=== PATIENT | female | born 1995 | race Caucasian/White ===

== ENCOUNTER 2017-01-13 18:07 | Emergency (ER) | payer OTHER ==
--- NOTE | 2017-01-13 18:42 | ER Document Report ---
ED Medical Screen (RME) - General Chief Complaint: Racing heart, VANEGAS, nausea Stated Complaint: FAST HEART BEAT,NAUSEA,DIZZY Time Seen by Provider: 01/13/17 18:41 Notes: Patient states she has been feeling weak for several days. She has been lightheaded and dizzy. No problems with urination. No bleeding. She states she took a test and it was +3 days ago but then she had some vaginal spotting and a test today was negative. She is also been under some stress because her left today to help in [place]. TRAVEL OUTSIDE OF THE [place] IN LAST 30 DAYS: No Past Medical History Renal/ Medical History: Denies: Hx Peritoneal Dialysis
[2017-01-13 19:24] LABS: ABSOLUTE EOSINOPHILS # (AUTO) 0.1 10^3/uL (0.0-0.6); ABSOLUTE LYMPHOCYTES (AUTO) 1.9 10^3/uL (0.5-4.7); ABSOLUTE MONOCYTES (AUTO) 0.3 10^3/uL (0.1-1.4); ABSOLUTE NEUT (AUTO) 2.1 10^3/uL (1.7-8.2); EOSINOPHILS % (AUTO) 1.7 % (0-6); HEMATOCRIT 41.6 % (36.0-47.0); HEMOGLOBIN 14.1 g/dL (12.0-15.5); HGB HCT DIFFERENCE 0.7; LYMPHOCYTES % (AUTO) 42.5 % (13-45); MEAN CORPUSCULAR HEMOGLOBIN 27.3 pg (27.0-33.4); MEAN CORPUSCULAR HGB CONC 33.9 g/dL (32.0-36.0); MEAN CORPUSCULAR VOLUME 81 fl (80-97); MONOCYTES % (AUTO) 7.4 % (3-13); RED BLOOD COUNT 5.17 10^6/uL (3.72-5.28); RED CELL DISTRIBUTION WIDTH 14.4 % (11.5-14.0); SEGMENTED NEUTROPHILS % (AUTO) 47.4 % (42-78); WHITE BLOOD COUNT 4.5 10^3/uL (4.0-10.5)
[2017-01-13 19:25] LABS: APPEARANCE,URINE CLEAR; BILIRUBIN,URINE NEGATIVE (NEGATIVE); GLUCOSE, URINE NEGATIVE (NEGATIVE); KETONES,URINE NEGATIVE (NEGATIVE); LEUKOCYTE ESTERASE,URINE NEGATIVE (NEGATIVE); NITRITE,URINE NEGATIVE (NEGATIVE); PROTEIN,URINE NEGATIVE (NEGATIVE); URINE SPECIFIC GRAVITY 1.002; UROBILINOGEN,URINE NEGATIVE mg/dL (<2.0)
[2017-01-13 19:43] LABS: ALANINE AMINOTRANSFERASE 25 U/L (9-52); ALBUMIN 4.9 g/dL (3.5-5.0); ALKALINE PHOSPHATASE 58 U/L (38-126); ANION GAP 14 (5-19); ASPARTATE AMINO TRANSFERASE 21 U/L (14-36); BILIRUBIN,DIRECT 0.3 mg/dL (0.0-0.4); BILIRUBIN,TOTAL 0.5 mg/dL (0.2-1.3); BLOOD UREA NITROGEN 7 mg/dL (7-20); CALCIUM 10.1 mg/dL (8.4-10.2); CARBON DIOXIDE 25 mmol/L (22-30); CHLORIDE 105 mmol/L (98-107); CREATININE RESULT 0.76 mg/dL (0.52-1.25); GLUCOSE 91 mg/dL (75-110); POTASSIUM 3.7 mmol/L (3.6-5.0); SODIUM 143.5 mmol/L (137-145); TOTAL PROTEIN 7.8 g/dL (6.3-8.2)
[2017-01-13] MEDS ORDERED: DIPHENHYDRAMINE HCL 50 MG/ML VIAL IV ONE (19:53)
[2017-01-13] MEDS ORDERED: PROCHLORPERAZINE EDISYLATE INJ 10 MG/2 ML VIAL IV ONE (19:53)
[2017-01-13] MEDS ORDERED: KETOROLAC TROMETHAMINE INJ/PF 30 MG/1 ML SDV IV ONE (19:53)
--- NOTE | 2017-01-13 19:55 | ER Document Report ---
ED General - General Chief Complaint: Racing heart, VANEGAS, nausea Stated Complaint: FAST HEART BEAT,NAUSEA,DIZZY Time Seen by Provider: 01/13/17 18:41 Mode of Arrival: Ambulatory Information source: Patient, Parent Notes: Patient presents complaining of 3 day history of heart palpitations off and on. Patient states that she has had a headache to the right side of her head for the past 3 days as well. Patient complains of some nausea. Patient denies any vomiting or diarrhea. Patient states that whenever she has these episodes of heart racing that she occasionally will feel dizzy. Patient also states that her spouse left today to go to [place] to help with flood victims. Patient denies any known history of anxiety. Patient states that she does not like to typically complain about her symptoms that she has. Patient denies any recent travel, surgeries, bedrest or immobilization. Patient denies any history of PE or DVT in the past. Patient denies any cough or cold symptoms. TRAVEL OUTSIDE OF THE [place] IN LAST 30 DAYS: No - HPI Onset: Other - 3 days Onset/Duration: Waxing and waning Quality of pain: Achy Pain Level: 4 Associated symptoms: Headache, Nausea, Other - Palpitations. denies: Chest pain , Nonproductive cough, Productive cough, Fever, Vomiting, Shortness of breath Exacerbated by: Denies Relieved by: Denies Similar symptoms previously: No Recently seen / treated by doctor: No - Related Data Allergies/Adverse Reactions: fluconazole Allergy (Verified 01/13/17 18:41) Past Medical History - General Information source: Patient - Social History Smoking Status: Never Smoker Frequency of alcohol use: None Drug Abuse: None Occupation: None Lives with: Family Family History: Reviewed & Not Pertinent Neurological Medical History: Reports: Other - Occasional headaches Renal/ Medical History: Denies: Hx Peritoneal Dialysis Surgical Hx: Negative Review of Systems - Review of Systems Constitutional: No symptoms reported. denies: Fever EENT: No symptoms reported Cardiovascular: Heart racing, Dizziness. denies: Chest pain Respiratory: No symptoms reported. denies: Cough, Short of breath Gastrointestinal: Nausea. denies: Abdominal pain, Vomiting Genitourinary: No symptoms reported Female Genitourinary: No symptoms reported Musculoskeletal: No symptoms reported. denies: Back pain Skin: No symptoms reported. denies: Rash Hematologic/Lymphatic: No symptoms reported Neurological/Psychological: Headaches. denies: Lost consciousness Physical Exam - Vital signs Vitals: Temp Pulse Resp BP Pulse Ox 98.3 F 66 19 117/84 98 01/13/17 22:30 01/13/17 22:30 01/13/17 22:30 01/13/17 22:30 01/13/17 22:30 - General General appearance: Appears well, Alert In distress: None - HEENT Head: Normocephalic, Atraumatic Eyes: Normal Conjunctiva: Normal Pupils: PERRL Tympanic membrane: Normal Sinus: Normal Nasal: Normal Mouth/Lips: Normal Mucous membranes: Normal Neck: Normal, Supple. No: Lymphadenopathy, Meningismus - Respiratory Respiratory status: No respiratory distress Chest status: Nontender Breath sounds: Normal. No: Rales, Rhonchi, Stridor, Wheezing Chest palpation: Normal - Cardiovascular Rhythm: Regular Heart sounds: S1 appreciated, S2 appreciated Murmur: No - Back Back: Normal, Nontender. No: CVA tenderness - Extremities General upper extremity: Normal inspection, Normal ROM General lower extremity: Normal inspection, Normal ROM - Neurological Neuro grossly intact: Yes Cognition: Normal Yulisa Coma Scale Eye Opening: Spontaneous Stanley Coma Scale Verbal: Oriented Stanley Coma Scale Motor: Obeys Commands Yulisa Coma Scale Total: 15 - Psychological Associated symptoms: Normal affect, Normal mood - Skin Skin Temperature: Warm Skin Moisture: Dry Skin Color: Normal Course - Re-evaluation Re-evalutation: 01/13/17 22:09 Patient reports that headache pain has resolved. Patient without any palpitations during her ER stay. Discussed results of her diagnostic tests. Patient encouraged to follow-up with her primary doctor as well as a accountant certified public for recheck. Discussed worsening signs or symptoms that patient should return immediately for. Patient verbalized understanding and agrees with plan of care - Vital Signs Vital signs: Temp Pulse Resp BP Pulse Ox 98.3 F 66 19 117/84 98 01/13/17 22:30 01/13/17 22:30 01/13/17 22:30 01/13/17 22:30 01/13/17 22:30 - Laboratory Result Diagrams: 01/13/17 19:13 01/13/17 19:13 Laboratory results interpreted by me: 01/13/17 19:13 RDW 14.4 H 01/13/17 22:10 Labs- Entire Visit 0801/13/17 01/13/17 19:13 19:13 19:13 WBC 4.5 RBC 5.17 Hgb 14.1 Hct 41.6 MCV 81 MCH 27.3 MCHC 33.9 RDW 14.4 H Plt Count 254 Seg Neutrophils % 47.4 Lymphocytes % 42.5 Monocytes % 7.4 Eosinophils % 1.7 Basophils % 1.0 Absolute Neutrophils 2.1 Absolute Lymphocytes 1.9 Absolute Monocytes 0.3 Absolute Eosinophils 0.1 Absolute Basophils 0.0 Sodium 143.5 Potassium 3.7 Chloride 105 Carbon Dioxide 25 Anion Gap 14 BUN 7 Creatinine 0.76 Est GFR ( Amer) > 60 Est GFR (Non-Af Amer) > 60 Glucose 91 Calcium 10.1 Total Bilirubin 0.5 Direct Bilirubin 0.3 Indirect Bilirubin Not Reportable Neonat Total Bilirubin Not Reportable AST 21 ALT 25 Alkaline Phosphatase 58 Total Protein 7.8 Albumin 4.9 TSH Serum HCG, Qual Urine Color COLORLESS Urine Appearance CLEAR Urine pH 6.0 Ur Specific [place] 1.002 Urine Protein NEGATIVE Urine Glucose (UA) NEGATIVE Urine Ketones NEGATIVE Urine Blood NEGATIVE Urine Nitrite NEGATIVE Urine Bilirubin NEGATIVE Urine Urobilinogen NEGATIVE Ur Leukocyte Esterase NEGATIVE Urine WBC (Auto) 0 Urine Mucus (Auto) RARE Urine Ascorbic Acid NEGATIVE Urine HCG, Qual NEGATIVE 01/13/17 01/13/17 19:13 19:13 WBC RBC Hgb Hct MCV MCH MCHC RDW Plt Count Seg Neutrophils % Lymphocytes % Monocytes % Eosinophils % Basophils % Absolute Neutrophils Absolute Lymphocytes Absolute Monocytes Absolute Eosinophils Absolute Basophils Sodium Potassium Chloride Carbon Dioxide Anion Gap BUN Creatinine Est GFR ( Amer) Est GFR (Non-Af Amer) Glucose Calcium Total Bilirubin Direct Bilirubin Indirect Bilirubin Neonat Total Bilirubin AST ALT Alkaline Phosphatase Total Protein Albumin TSH 1.12 Serum HCG, Qual NEGATIVE Urine Color Urine Appearance Urine pH Ur Specific [place] Urine Protein Urine Glucose (UA) Urine Ketones Urine Blood Urine Nitrite Urine Bilirubin Urine Urobilinogen Ur Leukocyte Esterase Urine WBC (Auto) Urine Mucus (Auto) Urine Ascorbic Acid Urine HCG, Qual Discharge - Discharge Clinical Impression: Palpitations Headache Qualifiers: Headache type: unspecified Headache chronicity pattern: acute headache Intractability: not intractable Qualified Code(s): R51 - Headache Condition: Stable Disposition: HOME, SELF-CARE Instructions: Antinausea Medication ([facility]), Intravenous Compazine for Headaches ([facility]), Headache ([facility]), Palpitations (Irregular or Rapid Heartrate) ([facility]) Additional Instructions: Return immediately for any new or worsening symptoms Followup with your primary care provider, call tomorrow to make a followup appointment Follow-up with accountant certified public for a recheck Prescriptions: Promethazine HCl [Phenergan 25 mg Tablet] 25 mg PO Q6H PRN #10 tablet PRN Reason: Referrals: KATHI ESPINAL MD [Primary Care Provider] - Follow up tomorrow ADIN ROSARIO MD [ACTIVE STAFF] - Follow up in 3-5 days
[2017-01-13 23:03] VITALS: BP 117/84
--- NOTE | 2017-01-14 11:45 | EKG REPORT ---
SEVERITY:- NORMAL ECG - SINUS RHYTHM : Confirmed by: Jose D Damon 14-Jan-2017 11:44:55
== END 2017-01-13 22:30 | disposition home or self-care (01) ==
LOC: ER 18:07
DX: R00.2 Palpitations (principal); R51 Headache; R11.0 Nausea; R42 Dizziness and giddiness; Z88.3 Allergy status to other anti-infective agents
CPT/HCPCS: 93005; 99285; 96374; 96375; 36415; 84443; 84703; 85025; 81025; 80053; 81001; 93010; J1200; J1885; J0780

== ENCOUNTER 2019-08-13 09:38 | Inpatient (IN) | payer OTHER ==
[2019-08-13] MEDS ORDERED: CEFTRIAXONE INJ 1000 MG VIAL ONE (10:05)
[2019-08-13] MEDS: CEFTRIAXONE INJ 1000 MG VIAL IV SCH ×2 (10:14→21:30)
[2019-08-13 10:40] LABS: APPEARANCE,URINE TURBID; BILIRUBIN,URINE NEGATIVE (NEGATIVE); COLOR,URINE YELLOW; GLUCOSE, URINE NEGATIVE (NEGATIVE); KETONES,URINE NEGATIVE (NEGATIVE); LEUKOCYTE ESTERASE,URINE LARGE (NEGATIVE); NITRITE,URINE NEGATIVE (NEGATIVE); PROTEIN,URINE 30 mg/dL (NEGATIVE); URINE SPECIFIC GRAVITY 1.008; UROBILINOGEN,URINE NEGATIVE mg/dL (<2.0)
[2019-08-13 11:00] LABS: URINE AMPHETAMINES SCREEN NEGATIVE; URINE BARBITURATES SCREEN NEGATIVE; URINE BENZODIAZEPINES SCREEN NEGATIVE; URINE COCAINE SCREEN NEGATIVE; URINE MARIJUANA (THC) SCREEN NEGATIVE; URINE METHADONE SCREEN NEGATIVE; URINE PHENCYCLIDINE SCREEN NEGATIVE
[2019-08-13] MEDS ORDERED: ONDANSETRON HCL INJ/PF 4 MG/2 ML SDV IV PRN (11:03)
[2019-08-13] MEDS ORDERED: ACETAMINOPHEN WITH CODEINE #3 TABLET PO PRN (11:24)
[2019-08-13] MEDS ORDERED: RINGERS SOLUTION,LACTATED 1,000 ML IV PRN (11:26)
[2019-08-13] MEDS ORDERED: ONDANSETRON HCL INJ/PF 4 MG/2 ML SDV ONE (11:26)
[2019-08-13] MEDS ORDERED: RINGERS SOLUTION,LACTATED 1,000 ML IV ONE (11:26)
[2019-08-13] MEDS ORDERED: ACETAMINOPHEN WITH CODEINE #3 TABLET ONE (11:26)
[2019-08-13 11:41] LABS: ABSOLUTE LYMPHOCYTES (AUTO) 1.1 10^3/uL (0.5-4.7); ABSOLUTE MONOCYTES (AUTO) 0.5 10^3/uL (0.1-1.4); ABSOLUTE NEUT (AUTO) 6.7 10^3/uL (1.7-8.2); BASOPHILS % (AUTO) 0.3 % (0-2); EOSINOPHILS % (AUTO) 0.3 % (0-6); HEMATOCRIT 28.8 % (36.0-47.0); HEMOGLOBIN 10.3 g/dL (12.0-15.5); LYMPHOCYTES % (AUTO) 13.5 % (13-45); MEAN CORPUSCULAR HEMOGLOBIN 26.7 pg (27.0-33.4); MEAN CORPUSCULAR HGB CONC 35.7 g/dL (32.0-36.0); MEAN CORPUSCULAR VOLUME 75 fl (80-97); MONOCYTES % (AUTO) 6.4 % (3-13); PLATELET COUNT 220 10^3/uL (150-450); RED BLOOD COUNT 3.86 10^6/uL (3.72-5.28); RED CELL DISTRIBUTION WIDTH 13.9 % (11.5-14.0); SEGMENTED NEUTROPHILS % (AUTO) 79.5 % (42-78); TOTAL CELLS COUNTED % (AUTO) 100 %; WHITE BLOOD COUNT 8.4 10^3/uL (4.0-10.5)
[2019-08-13 12:02] LABS: ALBUMIN 3.1 g/dL (3.5-5.0); ALKALINE PHOSPHATASE 92 U/L (38-126); AMYLASE 73 U/L (30-110); ANION GAP 7 (5-19); ASPARTATE AMINO TRANSFERASE 17 U/L (14-36); BILIRUBIN,TOTAL 0.2 mg/dL (0.2-1.3); BLOOD UREA NITROGEN 5 mg/dL (7-20); CALCIUM 9.1 mg/dL (8.4-10.2); CARBON DIOXIDE 21 mmol/L (22-30); CHLORIDE 109 mmol/L (98-107); GLUCOSE 115 mg/dL (75-110); POTASSIUM 3.6 mmol/L (3.6-5.0); TOTAL PROTEIN 5.7 g/dL (6.3-8.2)
--- NOTE | 2019-08-13 12:48 | Admission Physical ---
Datetime Report Generated by CPN: 08/13/2019 12:48 CURRENT ADMISSION Chief Complaint: Other Chief Complaint Other: Right CVAT Indication for Induction: Not Applicable Admit Impression : , Intrauterine Admit Plan: Admit to Unit; Observation/Evaluation Admit Plan- Other: observation and antibiotics ALLERGIES Medication Allergies: Yes Medication Allergies: fluconazole (08/13/2019) Latex: No Latex Allergies Food Allergies: none Environmental Allergies: none OBSTETRICAL HISTORY EDC: 10/11/2019 00:00 : 4 Para: 3 Term: 3 Livin Gestational Diabetes: No Rh Sensitization: No Incompetent Cervix: No HUGO: No Infertility: No ART Treatment: No Uterine Anomaly: No IUGR: No Hx Previous C/S: No Macrosomia: No Hx Loss/Stillborn: No Hx : No Placenta Previa/Abruption: No Depression/PP Depression: Yes PTL/PROM: No Post Hemorrhage: No Current Procedures: Ultrasound Obstetrical History Comments: 2013 6#6 [id number] 2017 8# G4- current; frequent UTI SEE RECORDS Alcohol: No Marijuana : No Cocaine: No Other Illicit Drugs: No Cigarettes: Never Smoker. 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: No Heart Disease: No Hosp/Surgery: Yes Autoimmune Disorder: No Anesthetic Complications: No Kidney Disease: Yes Abnormal Pap Smear: No Neuro/Epilepsy: No Psychiatric Disorders: No Other Medical Diseases: No Hepatitis/Liver Disease: No Significant Family History: No Varicosities/Phlebitis: No Trauma/Violence : No Thyroid Dysfunction: No Medical History Comments: childbirth x3, hospitalized for PNA- [place] at 16 y/o, PHYSICAL EXAM General: Normal HEENT: Normal Neurologic: Normal Thyroid: Deferred Heart: Normal Lungs: Normal Breast: Deferred Back: Normal Abdomen: Normal Genitourinary Exam: Normal Extremities: Normal DTRs: Normal Pelvic Type: Adequate Vital Signs: Reviewed FETUS A EGA: 31.4 Monitoring: External US FHR- Baseline: 145 Variability: Moderate 6-25bpm Accelerations: 15X15 Decelerations: None FHR Category: Category I Presentation: Vertex Admit Comment: 24yo at 31+4ega presents with worsening right flank pain. She is known to have chronic UTIs. Last UTI was 07/27 and patient completed the antibiotics however, is continuing tohave pain. She denies fevers/chills. She reports that she has Hydronephrosis with each and reportedly was delivered for it once. CBC in am. Plan ROcephin Q 12 and urine culture requested. US ordered of right flank. Amylase and lipase are negative. No velez sign. PLANS FOR LABOR AND DELIVERY Labor and Delivery: None Pain Management: Natural Feeding Preference: Breast Benefit of Breast Feed Discussed: Yes Circumcision: Yes INFORMED CONSENT Informed Consent Obtained: Risks, Benefits and Alternatives Discussed Signature: with User ID: [email or web address]
--- NOTE | 2019-08-13 13:30 | RADIOLOGY REPORT (SQ) ---
EXAM DESCRIPTION: U/S ABDOMEN LIMITED W/O DOP IMAGES COMPLETED DATE/TIME: 08/13/2019 1:15 pm REASON FOR STUDY: rule out renal abscess, right CVAT COMPARISON: None. TECHNIQUE: Dynamic and static grayscale images acquired of the abdomen and recorded on PACS. Erickao arely selected color Doppler and spectral images recorded. LIMITATIONS: None. FINDINGS: PANCREAS: No masses. Visualized pancreatic duct normal caliber. LIVER: No masses. Echotexture normal. LIVER VASCULATURE: Normal directional flow of the main portal vein and hepatic veins. GALLBLADDER: No stones. Normal wall thickness. No pericholecystic fluid. ULTRASOUND-DETECTED FERRARA'S SIGN: Negative. INTRAHEPATIC DUCTS AND COMMON DUCT: CBD and intrahepatic ducts normal caliber. No filling defects. INFERIOR VENA CAVA: Normal flow. AORTA: No aneurysm. RIGHT KIDNEY: Marked hydronephrosis. This includes dilatation of the renal collecting system with d ilated renal pelvis to approximately 3.6 cm. This is well beyond expected for a patient at this state of gestation. No focal renal mass/abscess otherwise detected. PERITONEAL AND RIGHT PLEURAL SPACE: No ascites or effusions. OTHER: No other significant findings. IMPRESSION: 1. Hydronephrosis. This is well beyond expected for a patient of this age. 2. No gross renal abscess. Otherwise unremarkable right upper quadrant ultrasound. TECHNICAL DOCUMENTATION: JOB ID: [id number] [employer]- All Rights Reserved Reading location - IP/workstation name: [email or web address]
--- NOTE | 2019-08-13 17:35 | PDOC PROGRESS REPORT ---
Subjective Progress Note for:: 08/13/19 Subjective:: US reviewed with Urology consult at [facility] Reason For Visit: , PYELONEPHRITIS, Hydronephrosis Physical Exam - Physical Exam Vital Signs: Intake & Output 08/12/19 08/13/19 08/14/19 06:59 06:59 06:59 Weight 62.1 kg General appearance: PRESENT: no acute distress, well-developed, well-nourished Head exam: PRESENT: atraumatic, normocephalic Respiratory exam: PRESENT: clear to auscultation khris, symmetrical, unlabored Cardiovascular exam: PRESENT: RRR. ABSENT: diastolic murmur, rubs, systolic murmur GI/Abdominal exam: PRESENT: normal bowel sounds, soft. ABSENT: distended, guarding, mass, organolmegaly, rebound, tenderness Rectal exam: PRESENT: deferred Musculoskeletal exam: PRESENT: ambulatory Neurological exam: PRESENT: alert, awake, oriented to person, oriented to place, oriented to time, oriented to situation, CN II-XII grossly intact. ABSENT: motor sensory deficit Psychiatric exam: PRESENT: appropriate affect, normal mood. ABSENT: homicidal ideation, suicidal ideation Result Laboratory Results: 08/13/19 11:21 08/13/19 11:21 08/13/19 08/13/19 08/13/19 09:45 11:21 11:21 WBC 8.4 RBC 3.86 Hgb 10.3 L Hct 28.8 L MCV 75 L MCH 26.7 L MCHC 35.7 RDW 13.9 Plt Count 220 Seg Neutrophils % 79.5 H Sodium 137.0 Potassium 3.6 Chloride 109 H Carbon Dioxide 21 L Anion Gap 7 BUN 5 L Creatinine 0.41 L Est GFR ( Amer) > 60 Glucose 115 H Calcium 9.1 Total Bilirubin 0.2 AST 17 Alkaline Phosphatase 92 Total Protein 5.7 L Albumin 3.1 L Amylase 73 Lipase Urine Color YELLOW Urine Appearance TURBID Urine pH 6.0 Ur Specific [place] 1.008 Urine Protein 30 H Urine Glucose (UA) NEGATIVE Urine Ketones NEGATIVE Urine Blood LARGE H Urine Nitrite NEGATIVE Ur Leukocyte Esterase LARGE H 08/13/19 11:21 WBC RBC Hgb Hct MCV MCH MCHC RDW Plt Count Seg Neutrophils % Sodium Potassium Chloride Carbon Dioxide Anion Gap BUN Creatinine Est GFR ( Amer) Glucose Calcium Total Bilirubin AST Alkaline Phosphatase Total Protein Albumin Amylase Lipase 60.4 Urine Color Urine Appearance Urine pH Ur Specific [place] Urine Protein Urine Glucose (UA) Urine Ketones Urine Blood Urine Nitrite Ur Leukocyte Esterase Impressions: Abdomen Ultrasound 08/13/19 12:33 IMPRESSION: 1. Hydronephrosis. This is well beyond expected for a patient of this age. 2. No gross renal abscess. Otherwise unremarkable right upper quadrant ultra sound. Status: Imported from PACS Assessment & Plan - Diagnosis (1) Hydronephrosis Is this a current diagnosis for this admission?: Yes Plan: renal pelvis dilated to 3.6cm. pt with history of hydronephrosis. And reportedly was delivered in one of her prior pregnancies due to hydronephrosis. Spoke with Urology consult Bernardo GOMEZ - [facility] (works with Dr. Lopez) Agreed with slow/stop fluids. and pain control. If unable to control pain or Creatinine elevated or hydronephrosis worsens then may have to be transferred to have stent. O/w plan pain control and outpatient management. Will needs CT post delivery. (2) Pyelonephritis affecting in third trimester Is this a current diagnosis for this admission?: Yes - Time Time Spent with patient: 15-24 minutes Medications reviewed and adjusted accordingly: Yes Anticipated discharge: Home Within: within 48 hours
[2019-08-14 08:07] LABS: HEMOGLOBIN 10.6 g/dL (12.0-15.5); MEAN CORPUSCULAR HEMOGLOBIN 26.2 pg (27.0-33.4); MEAN CORPUSCULAR HGB CONC 34.3 g/dL (32.0-36.0); MEAN CORPUSCULAR VOLUME 76 fl (80-97); PLATELET COUNT 199 10^3/uL (150-450); RED BLOOD COUNT 4.07 10^6/uL (3.72-5.28); RED CELL DISTRIBUTION WIDTH 14.2 % (11.5-14.0); WHITE BLOOD COUNT 4.9 10^3/uL (4.0-10.5)
[2019-08-14 08:29] LABS: ALBUMIN 3.2 g/dL (3.5-5.0); ALKALINE PHOSPHATASE 102 U/L (38-126); ANION GAP 6 (5-19); ASPARTATE AMINO TRANSFERASE 16 U/L (14-36); BILIRUBIN,TOTAL 0.4 mg/dL (0.2-1.3); BLOOD UREA NITROGEN 5 mg/dL (7-20); CALCIUM 8.5 mg/dL (8.4-10.2); CARBON DIOXIDE 24 mmol/L (22-30); CHLORIDE 106 mmol/L (98-107); GLUCOSE 88 mg/dL (75-110)
[2019-08-14] MEDS: ACETAMINOPHEN 325 MG TABLET PO PRN ×2 (08:31→18:22)
[2019-08-14] MEDS ORDERED: CEFTRIAXONE INJ 1000 MG VIAL IV SCH (11:09)
[2019-08-14] MEDS: CEFTRIAXONE 1 GM/D5W RTU 1 GM/50 ML RTUPB IV SCH ×2 (12:06→21:37)
[2019-08-14] MEDS: FERROUS SULFATE 325 MG TABLET PO SCH (18:23)
[2019-08-14] MEDS: CEFTRIAXONE INJ 1000 MG VIAL IV SCH (19:31)
--- NOTE | 2019-08-15 00:57 | PDOC PROGRESS REPORT ---
Subjective Progress Note for:: 08/14/19 Subjective:: late entry note for 08/14/2019 at 1300 Reason For Visit: , PYELONEPHRITIS, Hydronephrosis Physical Exam - Physical Exam Vital Signs: Temp Pulse Resp BP Pulse Ox 98.0 F 77 16 109/70 98 08/15/19 00:36 08/15/19 00:36 08/15/19 00:36 08/15/19 00:36 08/15/19 00:36 Intake & Output 08/13/19 08/14/19 08/15/19 06:59 06:59 06:59 Intake Total 1400 1490 Output Total 650 1350 Balance 750 140 Weight 62.1 kg General appearance: PRESENT: no acute distress, well-developed, well-nourished Head exam: PRESENT: atraumatic, normocephalic Respiratory exam: PRESENT: clear to auscultation khris, symmetrical Cardiovascular exam: PRESENT: RRR. ABSENT: diastolic murmur, rubs, systolic murmur Pulses: PRESENT: normal dorsalis pedis pul, +2 pedal pulses bilateral GI/Abdominal exam: PRESENT: normal bowel sounds, soft, other - CVAT present but improved from yesterday. ABSENT: distended, guarding, mass, organolmegaly, rebound, tenderness Rectal exam: PRESENT: deferred Extremities exam: PRESENT: full ROM. ABSENT: calf tenderness, clubbing, pedal edema Neurological exam: PRESENT: alert, awake, oriented to person, oriented to place, oriented to time, oriented to situation, CN II-XII grossly intact. ABSENT: motor sensory deficit Psychiatric exam: PRESENT: appropriate affect, normal mood. ABSENT: homicidal ideation, suicidal ideation Skin exam: PRESENT: dry, intact, warm. ABSENT: cyanosis, rash Result Laboratory Results: 08/14/19 07:53 08/14/19 07:53 08/14/19 08/14/19 07:53 07:53 WBC 4.9 RBC 4.07 Hgb 10.6 L Hct 31.0 L MCV 76 L MCH 26.2 L MCHC 34.3 RDW 14.2 H Plt Count 199 Sodium 136.2 L Potassium 4.0 Chloride 106 Carbon Dioxide 24 Anion Gap 6 BUN 5 L Creatinine 0.50 L Est GFR ( Amer) > 60 Glucose 88 Calcium 8.5 Total Bilirubin 0.4 AST 16 Alkaline Phosphatase 102 Total Protein 6.0 L Albumin 3.2 L Impressions: Abdomen Ultrasound 08/13/19 12:33 IMPRESSION: 1. Hydronephrosis. This is well beyond expected for a patient of this age. 2. No gross renal abscess. Otherwise unremarkable right upper quadrant ultrasou nd. Status: Imported from PACS Assessment & Plan - Diagnosis (1) Hydronephrosis Is this a current diagnosis for this admission?: Yes Plan: Creatinine appears stable and CVAT is improving. Reviewed need for outpatient f/u with Urology for evaluation and management of likely anatomical issue that is causing her issues. She reports she has chronic UTIs even outside of and that every time she has symptoms it is on her right so suspect the issue is on her right since sidedness persists throughout pregnancies and not Repeat CMP and US in am. Pt is aware of plan. (2) Pyelonephritis affecting in third trimester Is this a current diagnosis for this admission?: Yes Plan: will need to go home on daily prophy. Macrobid 100mg QHS - Time Time Spent with patient: 15-24 minutes Medications reviewed and adjusted accordingly: Yes Anticipated discharge: Home - Inpatient Certification Based on my medical assessment, after consideration of the patient's comorbidities, presenting symptoms, or acuity I expect that the services needed warrant INPATIENT care.: Yes I certify that my determination is in accordance with my understanding of Medicare's requirements for reasonable and necessary INPATIENT services [42 CFR 412.3e].: Yes Medical Necessity: Failure to Improve With Outpatient Therapy, Need for Pain Control, Need for IV Antibiotics
[2019-08-15 07:41] VITALS: BP 115/70
[2019-08-15 07:41] LABS: ALBUMIN 2.9 g/dL (3.5-5.0); ALKALINE PHOSPHATASE 108 U/L (38-126); ANION GAP 6 (5-19); ASPARTATE AMINO TRANSFERASE 18 U/L (14-36); BILIRUBIN,TOTAL 0.2 mg/dL (0.2-1.3); BLOOD UREA NITROGEN 6 mg/dL (7-20); CALCIUM 8.5 mg/dL (8.4-10.2); CARBON DIOXIDE 20 mmol/L (22-30); CHLORIDE 110 mmol/L (98-107); GLUCOSE 79 mg/dL (75-110); POTASSIUM 3.7 mmol/L (3.6-5.0); TOTAL PROTEIN 5.6 g/dL (6.3-8.2)
--- NOTE | 2019-08-15 09:24 | PDOC DISCHARGE SUMMARY ---
Impression - Admit/DC Date/PCP Admission Date/Primary Care Provider: 08/13/19 11:29 JEREMY JENSEN MD Discharge Date: 08/15/19 - Discharge Diagnosis (1) Pyelonephritis affecting in third trimester Is this a current diagnosis for this admission?: Yes - Assessment Summary: She was admitted over the weekend and treated for pyelonephritis and hydronephrosis. She is doing well this morning and wishes to go home and followup as an outpatient. We will set up her referral and keep her on macrobid. - Additional Information Resuscitation Status: Full Code Discharge Diet: Regular Discharge Activity: Activity As Tolerated Referrals: JEREMY JENSEN MD [Primary Care Provider] - Home Medications: Vits96/Iron Fum/Folic [ Tablet] 1 tab PO DAILY 08/13/19 History of Present Illiness History of Present Illness: CARL THORNTON is a 24 year old female Physical Exam - Physical Exam Vital Signs: Temp Pulse Resp BP Pulse Ox 97.9 F 72 16 115/70 99 08/15/19 07:24 08/15/19 07:24 08/15/19 07:24 08/15/19 07:24 08/15/19 07:24 Intake & Output 08/14/19 08/15/19 08/16/19 06:59 06:59 06:59 Intake Total 1400 1590 Output Total 650 1700 Balance 750 -110 Weight 62.1 kg 60.669 kg Results Laboratory Results: WBC 4.9 10^3/uL (4.0-10.5) 08/14/19 07:53 RBC 4.07 10^6/uL (3.72-5.28) 08/14/19 07:53 Hgb 10.6 g/dL (12.0-15.5) L 08/14/19 07:53 Hct 31.0 % (36.0-47.0) L 08/14/19 07:53 MCV 76 fl (80-97) L 08/14/19 07:53 MCH 26.2 pg (27.0-33.4) L 08/14/19 07:53 MCHC 34.3 g/dL (32.0-36.0) 08/14/19 07:53 RDW 14.2 % (11.5-14.0) H 08/14/19 07:53 Plt Count 199 10^3/uL (150-450) 08/14/19 07:53 Lymph % (Auto) 13.5 % (13-45) 08/13/19 11:21 [place] % (Auto) 6.4 % (3-13) 08/13/19 11:21 Eos % (Auto) 0.3 % (0-6) 08/13/19 11:21 Baso % (Auto) 0.3 % (0-2) 08/13/19 11:21 Absolute Neuts (auto) 6.7 10^3/uL (1.7-8.2) 08/13/19 11:21 Absolute Lymphs (auto) 1.1 10^3/uL (0.5-4.7) 08/13/19 11:21 Absolute Monos (auto) 0.5 10^3/uL (0.1-1.4) 08/13/19 11:21 Absolute Eos (auto) 0.0 10^3/uL (0.0-0.6) 08/13/19 11:21 Absolute Basos (auto) 0.0 10^3/uL (0.0-0.2) 08/13/19 11:21 Seg Neutrophils % 79.5 % (42-78) H 08/13/19 11:21 Sodium 135.6 mmol/L (137-145) L 08/15/19 07:02 Potassium 3.7 mmol/L (3.6-5.0) 08/15/19 07:02 Chloride 110 mmol/L (98-107) H 08/15/19 07:02 Carbon Dioxide 20 mmol/L (22-30) L 08/15/19 07:02 Anion Gap 6 (5-19) 08/15/19 07:02 BUN 6 mg/dL (7-20) L 08/15/19 07:02 Creatinine 0.45 mg/dL (0.52-1.25) L 08/15/19 07:02 Est GFR ( Amer) > 60 (>60) 08/15/19 07:02 Est GFR (MDRD) Non-Af > 60 (>60) 08/15/19 07:02 Glucose 79 mg/dL (75-110) 08/15/19 07:02 Calcium 8.5 mg/dL (8.4-10.2) 08/15/19 07:02 Total Bilirubin 0.2 mg/dL (0.2-1.3) 08/15/19 07:02 Direct Bilirubin 0.0 mg/dL (0.0-0.4) 08/15/19 07:02 Neonat Total Bilirubin Not Reportable 08/15/19 07:02 Neonat Direct Bilirubin Not Reportable 08/15/19 07:02 Neonat Indirect Bili Not Reportable 08/15/19 07:02 AST 18 U/L (14-36) 08/15/19 07:02 ALT 8 U/L (<35) 08/15/19 07:02 Alkaline Phosphatase 108 U/L (38-126) 08/15/19 07:02 Total Protein 5.6 g/dL (6.3-8.2) L 08/15/19 07:02 Albumin 2.9 g/dL (3.5-5.0) L 08/15/19 07:02 Amylase 73 U/L (30-110) 08/13/19 11:21 Lipase 60.4 U/L (23-300) 08/13/19 11:21 Urine Color YELLOW 08/13/19 09:45 Urine Appearance TURBID 08/13/19 09:45 Urine pH 6.0 (5.0-9.0) 08/13/19 09:45 Ur Specific [place] 1.008 08/13/19 09:45 Urine Protein 30 mg/dL (NEGATIVE) H 08/13/19 09:45 Urine Glucose (UA) NEGATIVE mg/dL (NEGATIVE) 08/13/19 09:45 Urine Ketones NEGATIVE mg/dL (NEGATIVE) 08/13/19 09:45 Urine Blood LARGE (NEGATIVE) H 08/13/19 09:45 Urine Nitrite NEGATIVE (NEGATIVE) 08/13/19 09:45 Urine Bilirubin NEGATIVE (NEGATIVE) 08/13/19 09:45 Urine Urobilinogen NEGATIVE mg/dL (<2.0) 08/13/19 09:45 Ur Leukocyte Esterase LARGE (NEGATIVE) H 08/13/19 09:45 Urine Ascorbic Acid NEGATIVE (NEGATIVE) 08/13/19 09:45 Urine Opiates Screen NEGATIVE 08/13/19 09:45 Urine Methadone Screen NEGATIVE 08/13/19 09:45 Ur Barbiturates Screen NEGATIVE 08/13/19 09:45 Ur Phencyclidine Scrn NEGATIVE 08/13/19 09:45 Ur Amphetamines Screen NEGATIVE 08/13/19 09:45 U Benzodiazepines Scrn NEGATIVE 08/13/19 09:45 Urine Cocaine Screen NEGATIVE 08/13/19 09:45 U Marijuana (THC) Screen NEGATIVE 08/13/19 09:45 Impressions: Abdomen Ultrasound 08/13/19 12:33 IMPRESSION: 1. Hydronephrosis. This is well beyond expected for a patient of this age. 2. No gross renal abscess. Otherwise unremarkable right upper quadrant ultrasound. Stroke Is this a Stroke Patient?: No Acute Heart Failure - Is this a Heart Failure Patient?: No
[2019-08-15] MEDS: CEFTRIAXONE 1 GM/D5W RTU 1 GM/50 ML RTUPB IV SCH (09:46)
[2019-08-15] MEDS: FERROUS SULFATE 325 MG TABLET PO SCH (09:46)
--- NOTE | 2019-08-15 12:15 | RADIOLOGY REPORT (SQ) ---
EXAM DESCRIPTION: U/S RETROPERITON (RENAL/AORTA) IMAGES COMPLETED DATE/TIME: 08/15/2019 9:04 am REASON FOR STUDY: re-eval hydronephrosis COMPARISON: 08/13/2019 TECHNIQUE: Dynamic and static grayscale images acquired of the kidneys and bladder and recorded on P ACS. Additional selected color Doppler and spectral images recorded. LIMITATIONS: None. FINDINGS: RIGHT KIDNEY: Normal size. Normal echogenicity. No solid or suspicious masses. Kiesha l pelvis 2.9 cm, previously 3.6 cm No calcifications. LEFT KIDNEY: Normal size. Normal echogenicity. No solid or suspicious masses. No hydronephrosi s. No calcifications. BLADDER: No masses. OTHER FINDINGS: No other significant finding. IMPRESSION: Slight improvement in right hydronephrosis. COMMENT: The degree of renal pelvocalyceal dilation is correlated with the patient's current stage o f . TECHNICAL DOCUMENTATION: JOB ID: [id number] 2010 [employer]- All Rights Reserved Reading location - IP/workstation name: [email or web address]
== END 2019-08-15 10:44 | disposition home or self-care (01) | DRG 832 ==
LOC: LC 09:38 → LR 11:29 → 2S 16:00
PROVIDERS: ADMIT Student in an Organized Health Care Education/Training Program; ATTEND Student in an Organized Health Care Education/Training Program
DX: O23.03 Infections of kidney in pregnancy, third trimester (principal); N13.39 Other hydronephrosis; Z3A.31 31 weeks gestation of pregnancy
CPT/HCPCS: 36415; 76705; 76770; 80053; 80307; 81005; 82150; 83690; 85025; 85027; 87086; 87088; 87186; J0696; J2405

== ENCOUNTER 2019-09-28 22:34 | Outpatient (CLI) | payer OTHER ==
[2019-09-28 23:17] LABS: APPEARANCE,URINE CLEAR; BILIRUBIN,URINE NEGATIVE (NEGATIVE); COLOR,URINE STRAW; GLUCOSE, URINE NEGATIVE (NEGATIVE); KETONES,URINE NEGATIVE (NEGATIVE); LEUKOCYTE ESTERASE,URINE NEGATIVE (NEGATIVE); NITRITE,URINE NEGATIVE (NEGATIVE); PROTEIN,URINE NEGATIVE (NEGATIVE); URINE SPECIFIC GRAVITY 1.008; UROBILINOGEN,URINE NEGATIVE mg/dL (<2.0)
[2019-09-28 23:41] LABS: URINE AMPHETAMINES SCREEN NEGATIVE; URINE BARBITURATES SCREEN NEGATIVE; URINE BENZODIAZEPINES SCREEN NEGATIVE; URINE COCAINE SCREEN NEGATIVE; URINE MARIJUANA (THC) SCREEN NEGATIVE; URINE METHADONE SCREEN NEGATIVE; URINE PHENCYCLIDINE SCREEN NEGATIVE
--- NOTE | 2019-09-28 23:49 | Non Stress Test Report ---
Non Stress Test Datetime Report Generated by CPN: 09/28/2019 23:49 DEMOGRAPHIC EGA NST: 38.0 INDICATION Indication for Study (NST) Other: elevated B/P VITAL SIGNS Temperature - NST: 98.8 Pulse - NST: 64 RESP - NST: 17 NBPSYS NST: 127 NBPDIA NST: 84 URINE RESULTS Urine Protein, NST: Negative Urine Ketones - NST: Negative Urine Glucose - NST: Negative Urine Blood - NST: Negative MONITORING Monitor Explained: Monitor Explained; Test Explained; Patient Verbalized Understanding Time on Monitor: 09/27/2019 22:46 Time off Monitor: 09/28/2019 23:32 NST Duration: 1486 NST INTERVENTIONS NST Interventions: PO Hydration; Reposition Patient Physician Notified NST: Dr. Sousa BABY A: [id number] BABY A Movement : Present Contraction Frequency : irreg FHR Baseline : 130 Accelerations : 15X15 Decelerations : None Variability : Moderate 6-25bpm NST Review: Meets Criteria for Reactive NST NST Review and Verified By : Samia Hopson, TONY NST Results: Reactive NST REPORT Report Trigger: Send Report
== END 2019-09-28 23:38 | disposition home or self-care (01) ==
LOC: LC 22:34
PROVIDERS: ATTEND Obstetrics & Gynecology
DX: O16.3 Unspecified maternal hypertension, third trimester (principal); Z3A.38 38 weeks gestation of pregnancy
CPT/HCPCS: 59025; 80307; 81001

== ENCOUNTER 2019-10-04 06:06 | Inpatient (IN) | payer OTHER ==
[2019-10-04] MEDS ORDERED: OXYTOCIN 10 UNIT/ML VIAL ONE (06:09)
[2019-10-04] MEDS ORDERED: MISOPROSTOL 0.2 MG TABLET ONE (06:10)
[2019-10-04] MEDS ORDERED: LIDOCAINE 1% INJ-PF (10 MG/ML) 30 ML SDV ONE (06:10)
[2019-10-04] MEDS ORDERED: OXYTOCIN/0.9 % SODIUM CHLORIDE 30 UNIT/500 ML RTUINJ ONE (06:10)
[2019-10-04] MEDS ORDERED: OXYTOCIN/0.9 % SODIUM CHLORIDE 30 UNIT/500 ML RTUINJ IV PRN ×2 (06:52→15:38)
[2019-10-04] MEDS ORDERED: RINGERS SOLUTION,LACTATED 1,000 ML IV ONE (06:52)
[2019-10-04] MEDS ORDERED: RINGERS SOLUTION,LACTATED 1,000 ML IV PRN (06:52)
--- NOTE | 2019-10-04 06:55 | Admission Physical ---
Datetime Report Generated by CPN: 10/04/2019 06:55 CURRENT ADMISSION Chief Complaint: Scheduled Induction of Labor Chief Complaint Other: Right CVAT Indication for Induction: Other Indication for Induction- Other: HYdronephrosis Admit Impression : Induction of Labor Admit Plan: Initiate Labor Induction Protocol Admit Plan- Other: observation and antibiotics ALLERGIES Medication Allergies: Yes Medication Allergies: fluconazole (09/28/2019) Latex: No Latex Allergies Food Allergies: none Environmental Allergies: none OBSTETRICAL HISTORY EDC: 10/11/2019 00:00 : 4 Para: 3 Term: 3 Livin Gestational Diabetes: No Rh Sensitization: No Incompetent Cervix: No HUGO: No Infertility: No ART Treatment: No Uterine Anomaly: No IUGR: No Hx Previous C/S: No Macrosomia: No Hx Loss/Stillborn: No Hx : No Placenta Previa/Abruption: No Depression/PP Depression: Yes PTL/PROM: No Post Hemorrhage: No Current Procedures: Ultrasound Obstetrical History Comments: 2013 6#6 2014 77 2017 8# G4- current; frequent UTI SEE RECORDS Alcohol: No Marijuana : No Cocaine: No Other Illicit Drugs: No Cigarettes: Never Smoker. 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 Heart Disease: No Hosp/Surgery: Yes Autoimmune Disorder: No Anesthetic Complications: No Kidney Disease: Yes Abnormal Pap Smear: No Neuro/Epilepsy: No Psychiatric Disorders: No Other Medical Diseases: No Hepatitis/Liver Disease: No Significant Family History: No Varicosities/Phlebitis: No Trauma/Violence : No Thyroid Dysfunction: No Medical History Comments: childbirth x3, hospitalized for PNA- esophageal [place] at 16 y/o, INFECTIOUS HISTORY Gonorrhea: No Genital Herpes: No Chlamydia: No Tuberculosis: No Syphilis: No Hepatitis: No HIV/AIDS Exposure: No Rash or Viral Illness: No HPV: No PHYSICAL EXAM General: Normal HEENT: Normal Neurologic: Normal Thyroid: Normal Heart: Normal Lungs: Normal Breast: Normal Back: Normal Abdomen: Normal Genitourinary Exam: Normal Extremities: Normal DTRs: Normal Pelvic Type: Adequate Vital Signs: Reviewed; Within Normal Limits VAGINAL EXAM Dilatation: 3 Effacement: 50 Station: -3 Contraction Comments: irreglular contractions MEMBRANES Membranes: Intact FETUS A EGA: 39.0 Monitoring: External US FHR- Baseline: 130 Variability: Moderate 6-25bpm Accelerations: 15X15 Decelerations: None FHR Category: Category I Presentation: Vertex Admit Comment: 39.0 weeks EGA for IOL due to hydronephrosis complicating -Admit to LDR -NPO and IVFs: LR 1,000 bolus followed by 125 cc/hr -GBS negative, rh positive -Hx on prior -ANticipate PLANS FOR LABOR AND DELIVERY Labor and Delivery: None Pain Management: Natural Feeding Preference: Breast Benefit of Breast Feed Discussed: Yes Circumcision: Yes INFORMED CONSENT Informed Consent Obtained: Vaginal Delivery; Induction of Labor; Risks, Benefits and Alternatives Discussed Signature: with User ID: King : with User ID: King
[2019-10-04 07:34] LABS: APPEARANCE,URINE CLOUDY; BILIRUBIN,URINE NEGATIVE (NEGATIVE); COLOR,URINE YELLOW; GLUCOSE, URINE NEGATIVE (NEGATIVE); KETONES,URINE NEGATIVE (NEGATIVE); LEUKOCYTE ESTERASE,URINE SMALL (NEGATIVE); NITRITE,URINE NEGATIVE (NEGATIVE); PROTEIN,URINE NEGATIVE (NEGATIVE); URINE SPECIFIC GRAVITY 1.012; UROBILINOGEN,URINE NEGATIVE mg/dL (<2.0)
[2019-10-04 07:48] LABS: ABSOLUTE EOSINOPHILS # (AUTO) 0.1 10^3/uL (0.0-0.6); ABSOLUTE LYMPHOCYTES (AUTO) 1.7 10^3/uL (0.5-4.7); ABSOLUTE MONOCYTES (AUTO) 0.4 10^3/uL (0.1-1.4); ABSOLUTE NEUT (AUTO) 2.5 10^3/uL (1.7-8.2); BASOPHILS % (AUTO) 0.8 % (0-2); EOSINOPHILS % (AUTO) 1.1 % (0-6); HEMATOCRIT 29.6 % (36.0-47.0); HEMOGLOBIN 10.1 g/dL (12.0-15.5); LYMPHOCYTES % (AUTO) 36.6 % (13-45); MEAN CORPUSCULAR HEMOGLOBIN 24.3 pg (27.0-33.4); MEAN CORPUSCULAR HGB CONC 34.1 g/dL (32.0-36.0); MEAN CORPUSCULAR VOLUME 71 fl (80-97); MONOCYTES % (AUTO) 8.4 % (3-13); PLATELET COUNT 195 10^3/uL (150-450); RED BLOOD COUNT 4.15 10^6/uL (3.72-5.28); RED CELL DISTRIBUTION WIDTH 14.9 % (11.5-14.0); SEGMENTED NEUTROPHILS % (AUTO) 53.1 % (42-78); TOTAL CELLS COUNTED % (AUTO) 100 %; WHITE BLOOD COUNT 4.6 10^3/uL (4.0-10.5)
[2019-10-04 07:50] LABS: URINE AMPHETAMINES SCREEN NEGATIVE; URINE BARBITURATES SCREEN NEGATIVE; URINE BENZODIAZEPINES SCREEN NEGATIVE; URINE COCAINE SCREEN NEGATIVE; URINE MARIJUANA (THC) SCREEN NEGATIVE; URINE METHADONE SCREEN NEGATIVE; URINE PHENCYCLIDINE SCREEN NEGATIVE
[2019-10-04] MEDS ORDERED: FENTANYL/BUPIVACAINE/NS/PF 300 MCG/150 ML RTUINJ EPI ONE (12:19)
[2019-10-04] MEDS ORDERED: EPHEDRINE SULFATE INJ 50 MG/1 ML AMPULE ONE (12:19)
[2019-10-04] MEDS ORDERED: BUPIVACAINE HCL 0.25 % INJ/PF (2.5 MG/1 ML) 30 ML VIAL ONE (12:19)
[2019-10-04] MEDS ORDERED: FENTANYL CITRATE INJ/PF 100 MCG/2 ML AMPUL ONE (13:02)
[2019-10-04] MEDS ORDERED: DIPHENHYDRAMINE HCL 25 MG CAPSULE PO PRN (15:38)
[2019-10-04] MEDS ORDERED: BENZOCAINE/MENTHOL AEROSOL SPRAY 56 ML TOP PRN (15:38)
[2019-10-04] MEDS ORDERED: NA PHOS,M-B/NA PHOS,DI-BA (ADULT) 133 ML ENEMA PR PRN (15:38)
[2019-10-04] MEDS ORDERED: GLYCERIN/WITCH HAZEL LEAF 1 EACH MED..WIPE TP PRN (15:38)
[2019-10-04] MEDS ORDERED: DIBUCAINE 1% OINTMENT 28 GM TP PRN (15:38)
[2019-10-04] MEDS ORDERED: MAGNESIUM HYDROXIDE SUSP 30 ML UDCUP PO PRN (15:38)
[2019-10-04] MEDS ORDERED: PROMETHAZINE HCL INJ 25 MG/1 ML VIAL IV PRN (15:38)
[2019-10-04] MEDS ORDERED: DIPH/PERTUSS(ACELL)/TETANUS VAC/PF 0.5 ML SYR (>=10YO) IM PRN (15:38)
[2019-10-04] MEDS ORDERED: ACETAMINOPHEN 325 MG TABLET PO PRN (15:38)
[2019-10-04] MEDS ORDERED: PSEUDOEPHEDRINE HCL 30 MG TABLET PO PRN (15:38)
[2019-10-04] MEDS ORDERED: PROMETHAZINE HCL 25 MG TABLET PO PRN (15:38)
[2019-10-04] MEDS ORDERED: PROMETHAZINE HCL 25 MG SUPP.RECT PR PRN (15:38)
[2019-10-04] MEDS ORDERED: MEASLES,MUMPS&RUBELLA VACC/PF 0.5 ML VIAL SUBCUT PRN (15:38)
--- NOTE | 2019-10-04 16:21 | Delivery Summary ---
Del Sum A-C Datetime Report Generated by CPN: 10/04/2019 16:21 DELIVERY PERSONNEL DELIVERY PERSONNEL: [id number] Delivery Doctor:: Samantha Lundberg CNM Labor and Delivery Nurse:: Dulce Maria Interiano RNautomatic mold sander Nurse:: Shadia Ptael RN Nursery Nurse:: Danyell Simons RN MATERNAL INFORMATION Delivery Anesthesia: Epidural Medications After Delivery: Pitocin Bolus-Please Comment; Pitocin 30 Units in 500ml NS/D5W Meds After Delivery Comment: 30 units pitocin bolus Delivery QBL: 25 Maternal Complications: None Provider Comments: called into patient's room, pt c/c/+2 and pushing. Continued pushing and quickly delivered a viable baby boy. Baby with vigorous respiratory effort and cry spontaneously at . Shoulder cord noted. Baby placed on maternal abdomen skin to skin,cord allowed to stop pulsating, clamped x2 and cut by FOB (cord blood obtained, 3vc noted). Placenta delivered spontaneously intact, fundus firm at U-3, minimal bleeding. Vaginal and perineal inspection revealed a superficial laceration probably from old tear on perineum that was hemostatic and not repaired. Mother and baby remain skin to skin and stable at this time. LABOR SUMMARY EDC: 10/11/2019 00:00 No. Babies in Womb: 1 Attempted: No Labor Anesthesia: Epidural LABOR INFORMATION Reason for Induction: Other Reason for Induction- Other: mom hydronephrosis Onset of Labor: 10/04/2019 12:00 Complete Dilatation: 10/04/2019 15:08 Oxytocin: Induction Group B Beta Strep: negative Antibiotics # of Doses: 0 Antibiotics Time of Last Dose: n/a Name of Antibiotic Given: n/a Steroids Given: None Reason Steroids Not Administered: Not Applicable MEMBRANES Membranes Rupture Method: Artificial Rupture of Membranes: 10/04/2019 12:09 Length of Rupture (hr): 3.15 Amniotic Fluid Color: Clear Amniotic Fluid Amount: Moderate Amniotic Fluid Odor: None STAGES OF LABOR Stage 1 hr: 3 Stage 1 min: 8 Stage 2 hr: 0 Stage 2 min: 10 Stage 3 hr: 0 Stage 3 min: 5 Total Time in Labor hr: 3 Total Time in Labor min: 23 VAGINAL DELIVERY Episiotomy: None Laceration #1: Perineal Other Laceration: supercial perineal abrasion Laceration Repair: Not Applicable Laceration Repair Note: hemostatic no need for repair Sponge Count Correct: N/A Sharps Count Correct: N/A CSECTION DELIVERY Primary Indication: N/A Secondary Indication: N/A CSection Incidence: N/A Labor: N/A Elective: N/A CSection Incision: N/A BABY A INFORMATION Infant Delivery Date/Time: 10/04/2019 15:18 Method of Delivery: Vaginal Born in Route : No : N/A Forceps: N/A Vacuum Extraction: N/A Shoulder Dystocia : No PRESENTATION/POSITION BABY A Presentation: Cephalic Cephalic Presentation: Vertex Vertex Position: Right Occipital Anterior Breech Presentation: N/A PLACENTA INFORMATION BABY A Placenta Delivery Time : 10/04/2019 15:23 Placenta Method of Delivery: Spontaneous Placenta Status: Delivered SCORES BABY A Heart Rate 1 min: >100 bpm Resp Effort 1 min: Good Cry Reflex Irritability 1 min: Cough or Sneeze or Pulls Away Muscle Tone 1 min: Active Motion Color 1 min: Body [place], Extremities Blue Resuscitation Effort 1 min: Tactile Stimulation SCORE 1 MIN: 9 Heart Rate 5 min: >100 bpm Resp Effort 5 min: Good Cry Reflex Irritability 5 min: Cough or Sneeze or Pulls Away Muscle Tone 5 min: Active Motion Color 5 min: Body [place], Extremities Blue Resuscitation Effort 5 min: Tactile Stimulation SCORE 5 MIN: 9 INFANT INFORMATION BABY A Gestational Age at Delivery: 39.0 Gestational Status: Full Term- 39- 40.6 Weeks Infant Outcome : Liveborn Condition : Stable Sex: Male IDENTIFICATION BABY A Infant Verification Date/Time: 10/04/2019 16:19 ID Band Number: [id number] Mother's Name Verified: Yes Infant RN Verifying Infant: Gemini Patel, RN/ MLeland Interiano, RN WEIGHT/LENGTH BABY A Birthweight (gm): 3311 Weight (lb): 7 Weight (oz): 5 Infant Length (in): 20.00 Infant Length (cm): 50.80 CORD INFORMATION BABY A No. Cord Vessels: 3 Nuchal Cord : N/A Nuchal Cord- Other: shoulder Cord Blood Taken: Yes-For Eval (Mom's Blood Type - or O+) Infant Suction: None ASSESSMENT BABY A Complications: None Physical Findings at Delivery: Within Normal Limits Respirations: Appears Normal Skin to Skin: Yes Skin to Skin Time (min): 60 Infant Care By: Jana, RN Transferred To: Remains with Mother BABY B INFORMATION : N/A SIGNATURES Assignment: Deepak Walker MD Signature: with User ID: Gino : with User ID: Gino
[2019-10-04] MEDS: IBUPROFEN 800 MG TABLET PO SCH (17:31)
[2019-10-04] MEDS: FERROUS SULFATE 325 MG TABLET PO SCH (17:32)
[2019-10-04] MEDS: DOCUSATE SODIUM 100 MG CAPSULE PO SCH (17:32)
[2019-10-04] MEDS: FAMOTIDINE 20 MG TABLET PO SCH (22:00)
[2019-10-05] MEDS: IBUPROFEN 800 MG TABLET PO SCH ×4 (01:30→23:39)
[2019-10-05 07:05] LABS: HEMATOCRIT 29.3 % (36.0-47.0); HEMOGLOBIN 9.9 g/dL (12.0-15.5); MEAN CORPUSCULAR HEMOGLOBIN 24.3 pg (27.0-33.4); MEAN CORPUSCULAR HGB CONC 33.9 g/dL (32.0-36.0); MEAN CORPUSCULAR VOLUME 72 fl (80-97); PLATELET COUNT 188 10^3/uL (150-450); RED BLOOD COUNT 4.07 10^6/uL (3.72-5.28); RED CELL DISTRIBUTION WIDTH 14.9 % (11.5-14.0); WHITE BLOOD COUNT 6.4 10^3/uL (4.0-10.5)
--- NOTE | 2019-10-05 10:12 | PDOC PROGRESS REPORT ---
Subjective-OB Progress Note for:: 10/05/19 Subjective: Pt doing well, no concerns. She reports light bleeding, reg diet and voiding without difficulty. Physical Exam (OB) Vital Signs: Temp Pulse Resp BP Pulse Ox 97.8 F 67 16 132/73 H 100 10/05/19 07:32 10/05/19 07:32 10/05/19 07:32 10/05/19 07:32 10/05/19 07:32 Intake & Output 10/04/19 10/05/19 10/06/19 06:59 06:59 06:59 Intake Total 600 500 Balance 600 500 Weight 64.7 kg - PIH/Pre-Eclampsia DTR's: 1 + Clonus: Negative Headache: Absent Epigastric Pain: No Visual Changes: No - Lochia Lochia Amount: Scant < 10 ml Lochia Color: Rubra/Red - Abdomen Description: Soft, Round Hernia Present: No Fundal Description: Firm, Midline Fundal Height: u/u - u/2 Objective-Diagnostic Laboratory: 10/05/19 06:35 10/05/19 06:35 WBC 6.4 RBC 4.07 Hgb 9.9 L Hct 29.3 L MCV 72 L MCH 24.3 L MCHC 33.9 RDW 14.9 H Plt Count 188 Assessment and Plan(PN) - Assessment and Plan (1) Anemia complicating , third trimester Is this a current diagnosis for this admission?: Yes (2) Encounter for induction of labor Is this a current diagnosis for this admission?: Yes (3) Laceration of superficial layers of perineal structures Is this a current diagnosis for this admission?: Yes (4) Vaginal delivery Is this a current diagnosis for this admission?: Yes - Time Spent with Patient Time with patient: Less than 15 minutes Medications reviewed and adjusted accordingly: Yes - Disposition Anticipated Discharge: Home Within: within 24 hours
[2019-10-05] MEDS: PRENATAL VITAMIN W DHA CAPSULE PO SCH (10:23)
[2019-10-05] MEDS: FERROUS SULFATE 325 MG TABLET PO SCH ×2 (10:24→17:37)
[2019-10-05] MEDS: SENNOSIDES/DOCUSATE 8.6-50 MG 1 EACH TABLET PO SCH (10:25)
[2019-10-05] MEDS: DOCUSATE SODIUM 100 MG CAPSULE PO SCH ×2 (10:25→23:09)
[2019-10-05] MEDS: FAMOTIDINE 20 MG TABLET PO SCH ×2 (10:25→23:00)
[2019-10-06] MEDS: SENNOSIDES/DOCUSATE 8.6-50 MG 1 EACH TABLET PO SCH (09:53)
[2019-10-06] MEDS: FERROUS SULFATE 325 MG TABLET PO SCH (09:53)
[2019-10-06] MEDS: PRENATAL VITAMIN W DHA CAPSULE PO SCH (09:53)
[2019-10-06] MEDS: DOCUSATE SODIUM 100 MG CAPSULE PO SCH (09:53)
[2019-10-06] MEDS: IBUPROFEN 800 MG TABLET PO SCH (09:54)
[2019-10-06] MEDS: FAMOTIDINE 20 MG TABLET PO SCH (09:54)
[2019-10-06] MEDS ORDERED: PROMETHAZINE HCL INJ 25 MG/1 ML VIAL IV PRN (10:00)
[2019-10-06] MEDS ORDERED: MEASLES,MUMPS&RUBELLA VACC/PF 0.5 ML VIAL SUBCUT PRN (10:00)
[2019-10-06] MEDS ORDERED: DIPH/PERTUSS(ACELL)/TETANUS VAC/PF 0.5 ML SYR (>=10YO) IM PRN (10:00)
[2019-10-06 10:11] VITALS: BP 129/81
--- NOTE | 2019-10-06 11:28 | PDOC DISCHARGE SUMMARY ---
Impression - Admit/DC Date/PCP Admission Date/Primary Care Provider: 10/04/19 06:06 BRENDA WELLINGTON MD Discharge Date: 10/06/19 - Discharge Diagnosis (1) Anemia complicating , third trimester Is this a current diagnosis for this admission?: Yes (2) Encounter for induction of labor Is this a current diagnosis for this admission?: Yes (3) Laceration of superficial layers of perineal structures Is this a current diagnosis for this admission?: Yes (4) Vaginal delivery Is this a current diagnosis for this admission?: Yes - Additional Information Discharge Diet: Regular Discharge Activity: Activity As Tolerated, Pelvic Rest Referrals: [facility] [Provider Group] (Please call and schedule a 4 week f/u at [facility].) Prescriptions: Ibuprofen [Motrin 800 mg Tablet] 800 mg PO Q8HP PRN #60 tablet PRN Reason: Home Medications: Vits96/Iron Fum/Folic [ Tablet] 1 tab PO DAILY 08/13/19 Ibuprofen [Motrin 800 mg Tablet] 800 mg PO Q8HP PRN #60 tablet 10/06/19 Results Laboratory Results: WBC 6.4 10^3/uL (4.0-10.5) 10/05/19 06:35 RBC 4.07 10^6/uL (3.72-5.28) 10/05/19 06:35 Hgb 9.9 g/dL (12.0-15.5) L 10/05/19 06:35 Hct 29.3 % (36.0-47.0) L 10/05/19 06:35 MCV 72 fl (80-97) L 10/05/19 06:35 MCH 24.3 pg (27.0-33.4) L 10/05/19 06:35 MCHC 33.9 g/dL (32.0-36.0) 10/05/19 06:35 RDW 14.9 % (11.5-14.0) H 10/05/19 06:35 Plt Count 188 10^3/uL (150-450) 10/05/19 06:35 Lymph % (Auto) 36.6 % (13-45) 10/04/19 07:15 [place] % (Auto) 8.4 % (3-13) 10/04/19 07:15 Eos % (Auto) 1.1 % (0-6) 10/04/19 07:15 Baso % (Auto) 0.8 % (0-2) 10/04/19 07:15 Absolute Neuts (auto) 2.5 10^3/uL (1.7-8.2) 10/04/19 07:15 Absolute Lymphs (auto) 1.7 10^3/uL (0.5-4.7) 10/04/19 07:15 Absolute Monos (auto) 0.4 10^3/uL (0.1-1.4) 10/04/19 07:15 Absolute Eos (auto) 0.1 10^3/uL (0.0-0.6) 10/04/19 07:15 Absolute Basos (auto) 0.0 10^3/uL (0.0-0.2) 10/04/19 07:15 Seg Neutrophils % 53.1 % (42-78) 10/04/19 07:15 Urine Color YELLOW 10/04/19 06:40 Urine Appearance CLOUDY 10/04/19 06:40 Urine pH 6.0 (5.0-9.0) 10/04/19 06:40 Ur Specific [place] 1.012 10/04/19 06:40 Urine Protein NEGATIVE mg/dL (NEGATIVE) 10/04/19 06:40 Urine Glucose (UA) NEGATIVE mg/dL (NEGATIVE) 10/04/19 06:40 Urine Ketones NEGATIVE mg/dL (NEGATIVE) 10/04/19 06:40 Urine Blood NEGATIVE (NEGATIVE) 10/04/19 06:40 Urine Nitrite NEGATIVE (NEGATIVE) 10/04/19 06:40 Urine Bilirubin NEGATIVE (NEGATIVE) 10/04/19 06:40 Urine Urobilinogen NEGATIVE mg/dL (<2.0) 10/04/19 06:40 Ur Leukocyte Esterase SMALL (NEGATIVE) H 10/04/19 06:40 Urine Ascorbic Acid NEGATIVE (NEGATIVE) 10/04/19 06:40 Urine Opiates Screen NEGATIVE 10/04/19 06:40 Urine Methadone Screen NEGATIVE 10/04/19 06:40 Ur Barbiturates Screen NEGATIVE 10/04/19 06:40 Ur Phencyclidine Scrn NEGATIVE 10/04/19 06:40 Ur Amphetamines Screen NEGATIVE 10/04/19 06:40 U Benzodiazepines Scrn NEGATIVE 10/04/19 06:40 Urine Cocaine Screen NEGATIVE 10/04/19 06:40 U Marijuana (THC) Screen NEGATIVE 10/04/19 06:40 RPR NONREACTIVE (NONREACTIVE) 10/04/19 07:15 Blood Type O POSITIVE 10/04/19 07:15 Antibody Screen NEGATIVE 10/04/19 07:15 Plan Plan of Treatment: follow up in 4 weeks at [facility] for post check
== END 2019-10-06 16:30 | disposition home or self-care (01) | DRG 806 ==
LOC: LR 06:06 → 2S 17:20 → UNDODISIN 17:35
PROVIDERS: ADMIT Obstetrics & Gynecology Gynecology; ATTEND Obstetrics & Gynecology Gynecology
PROC: 10E0XZZ Delivery of Products of Conception, External Approach (ICD-10-PCS; principal; 2019-10-04)
PROC: 3E033VJ Introduction of Other Hormone into Peripheral Vein, Percutaneous Approach (ICD-10-PCS; 2019-10-04)
PROC: 10907ZC Drainage of Amniotic Fluid, Therapeutic from Products of Conception, Via Natural or Artificial Opening (ICD-10-PCS; 2019-10-04)
DX: O99.89 Other specified diseases and conditions complicating pregnancy, childbirth and the puerperium (principal); N13.30 Unspecified hydronephrosis; Z37.0 Single live birth; O69.2XX0 Labor and delivery complicated by other cord entanglement, with compression, not applicable or unspecified; O70.0 First degree perineal laceration during delivery; Z3A.39 39 weeks gestation of pregnancy; O99.02 Anemia complicating childbirth; Z88.3 Allergy status to other anti-infective agents
CPT/HCPCS: 1967; 36415; 80307; 81005; 85025; 85027; 86592; 86850; 86900; 86901; 94760; J2590; J3010; J3490